=== PATIENT | female | born 1940 | race Caucasian/White ===

== ENCOUNTER 2018-10-07 09:51 | Emergency (ER) | payer OTHER ==
[~2018-10-07] VITALS: Ht 165.1 cm; Wt 120.0 kg
[2018-10-07 10:21] VITALS: BP 102/81
[2018-10-07] MEDS ORDERED: HYDR12.58 PO (12:29)
[2018-10-07] MEDS ORDERED: DIVA500T2 PO (12:29)
[2018-10-07] MEDS ORDERED: METO25TA91 PO (12:29)
[2018-10-07] MEDS ORDERED: LISI-167 PO (12:29)
[2018-10-07] MEDS ORDERED: NIFE10CA PO (12:29)
[2018-10-07] MEDS ORDERED: OMNICEF PO (12:29)
[2018-10-07] MEDS ORDERED: FURO40TA6 PO (12:29)
[2018-10-07] MEDS ORDERED: METF500T17 PO (12:29)
[2018-10-07] MEDS ORDERED: ASPI-496 PO (12:29)
[2018-10-07] MEDS ORDERED: LEVO137T3 PO (12:29)
[2018-10-07] MEDS ORDERED: ATOR-2 PO (12:29)
[2018-10-07 14:28] LABS: BASOPHILS % (AUTO) 1 % (0-1); EOSINOPHILS # (AUTO) 0.14 x10^3/uL (0-0.4); EOSINOPHILS % (AUTO) 2 % (1-7); LYMPHOCYTES # (AUTO) 1.36 x10^3/uL (1-3.4); LYMPHOCYTES % (AUTO) 16 % (22-44); MD NO; MEAN CORPUSCULAR HEMOGLOBIN 30.8 pg (27.0-34.8); MEAN CORPUSCULAR HGB CONC 33.4 g/dL (32.4-35.8); MEAN CORPUSCULAR VOLUME 92.1 fL (80-100); MEAN PLATELET VOLUME 9.8 fL (7.4-10.4); MONOCYTES # (AUTO) 0.57 x10^3/uL (0.2-0.8); MONOCYTES % (AUTO) 7 % (2-9); NEUTROPHILS # (AUTO) 6.15 x10^3/uL (1.8-6.8); NEUTROPHILS % (AUTO) 74 % (42-75); PLATELET COUNT 179 x10^3/uL (130-400); RED BLOOD COUNT 4.42 x10^6/uL (3.82-5.3)
[2018-10-07] MEDS ORDERED: CEFTRIAXONE PMX 1GM/50ML 50 ML IV SCH (14:30)
[2018-10-07] MEDS ORDERED: SODIUM CHLORIDE 0.9% 1,000ML IVBOLUS ONE (14:30)
[2018-10-07] MEDS ORDERED: LORazepam INTENSOL 2 MG/ML BC ONE (14:30)
[2018-10-07] MEDS ORDERED: ACETAMINOPHEN 325 MG TABLET PO PRN (14:30)
[2018-10-07] MEDS ORDERED: ONDANSETRON ODT 4 MG PO PRN (14:30)
[2018-10-07] MEDS ORDERED: LORazepam 2 MG/ML, 1ML IVPush ONE (14:30)
[2018-10-07 14:31] LABS: ANION GAP 7 mmol/L (5-15); CALCIUM 8.9 mg/dL (8.5-10.1); CHLORIDE 109 mmol/L (98-107); CREATININE 1.44 mg/dL (0.55-1.02)
[2018-10-07] MEDS ORDERED: NYSTATIN CRM 15GM TP SCH (21:00)
[2018-10-08 15:43] LABS: ANION GAP 9 mmol/L (5-15); CALCIUM 8.1 mg/dL (8.5-10.1); CHLORIDE 111 mmol/L (98-107); CREATININE 1.29 mg/dL (0.55-1.02)
== END 2018-10-07 15:56 ==
LOC: ED 11:35 → UNDOADMIN 12:38 → EDIP 12:38 → ED 15:56
DX: F23 Brief psychotic disorder (principal); N39.0 Urinary tract infection, site not specified; E03.9 Hypothyroidism, unspecified; E11.65 Type 2 diabetes mellitus with hyperglycemia; N17.9 Acute kidney failure, unspecified; I11.9 Hypertensive heart disease without heart failure; E78.5 Hyperlipidemia, unspecified
CPT/HCPCS: 36415; 80048; 82040; 85025; 99285

== ENCOUNTER 2018-10-07 15:22 | Inpatient (IN) | payer OTHER ==
[~2018-10-07] VITALS: Ht 172.7 cm; Wt 121.0 kg
[~2018-10-07 15:22] MED LIST: ASPI-496 PO; ATOR-2 PO; DIVA500T2 PO; FURO40TA6 PO; HYDROCHLOROTH12.5 MG PO; LEVO137T3 PO; LISI-167 PO; METF500T17 PO; METO25TA91 PO; NIFE10CA PO; OMNICEF PO
[2018-10-07] MEDS ORDERED: DOCUSATE 100 MG CAPSULE PO PRN (16:00)
[2018-10-07] MEDS ORDERED: BISACODYL 10 MG SUPP PR PRN (16:00)
[2018-10-07] MEDS ORDERED: POLYETHYLENE GLYCOL 17 GM PACKET PO PRN (16:00)
[2018-10-07] MEDS ORDERED: ACETAMINOPHEN 325 MG TABLET PO PRN (16:00)
[2018-10-07] MEDS ORDERED: CEFTRIAXONE PMX 1GM/50ML 50 ML IV SCH (16:30)
[2018-10-07 16:37] VITALS: BP 155/70
[2018-10-07] MEDS ORDERED: OLANZAPINE 10 MG INJ IM ONE ×2 (18:29→18:30)
[2018-10-07] MEDS ORDERED: NYSTATIN CRM 15GM TP SCH (21:00)
[2018-10-07] MEDS: ATORVASTATIN 40 MG TABLET PO SCH (21:00)
[2018-10-07] MEDS ORDERED: DIAZEPAM 5 MG/ML, 2ML IM ONE (21:00)
[2018-10-07] MEDS: metFORMIN 500 MG TABLET PO SCH (21:00)
[2018-10-07] MEDS: DIVALPROEX 500 MG TABLET.DR PO SCH (21:00)
[2018-10-08] MEDS: LEVOTHYROXINE 137 MCG TABLET PO SCH (09:00)
[2018-10-08] MEDS: METOPROLOL SUCCINATE 25 MG TAB.ER.24H PO SCH (09:00)
[2018-10-08] MEDS: DIVALPROEX 500 MG TABLET.DR PO SCH ×3 (09:00→21:47)
[2018-10-08] MEDS: HYDROCHLOROTHIAZIDE 12.5 MG CAPSULE PO SCH ×2 (09:00→10:06)
[2018-10-08] MEDS: SENNA/DOCUSATE TABLET PO SCH (09:00)
[2018-10-08] MEDS ORDERED: METOPROLOL SUCCINATE 50 MG TAB.ER.24H ONE (09:59)
[2018-10-08 10:03] VITALS: BP 155/70
[2018-10-08] MEDS: CEFTRIAXONE 1,000 MG IM SCH (10:05)
[2018-10-08] MEDS: ASPIRIN 81 MG TABLET EC PO SCH (10:06)
[2018-10-08] MEDS: metFORMIN 500 MG TABLET PO SCH ×2 (10:06→21:47)
[2018-10-08] MEDS: FUROSEMIDE 40 MG TABLET PO SCH (10:06)
[2018-10-08] MEDS: LISINOPRIL 20 MG TABLET PO SCH (10:06)
[2018-10-08 20:52] VITALS: BP 147/78
[2018-10-08] MEDS: ATORVASTATIN 40 MG TABLET PO SCH (21:47)
[2018-10-08] MEDS: RISPERIDONE 1 MG TABLET PO SCH (21:59)
[2018-10-09 07:15] VITALS: BP 155/67
[2018-10-09] MEDS: metFORMIN 500 MG TABLET PO SCH ×2 (09:23→21:00)
[2018-10-09] MEDS: RISPERIDONE 1 MG TABLET PO SCH ×2 (09:24→21:00)
[2018-10-09] MEDS: ASPIRIN 81 MG TABLET EC PO SCH (09:24)
[2018-10-09] MEDS: LEVOTHYROXINE 137 MCG TABLET PO SCH (09:25)
[2018-10-09] MEDS: METOPROLOL SUCCINATE 25 MG TAB.ER.24H PO SCH (09:25)
[2018-10-09] MEDS: SENNA/DOCUSATE TABLET PO SCH (09:33)
[2018-10-09] MEDS: CEFTRIAXONE 1,000 MG IM SCH (09:34)
[2018-10-09] MEDS: DIVALPROEX 500 MG TABLET.DR PO SCH ×2 (09:35→21:00)
[2018-10-09] MEDS: HYDROCHLOROTHIAZIDE 12.5 MG CAPSULE PO SCH (09:35)
[2018-10-09] MEDS: FUROSEMIDE 40 MG TABLET PO SCH (09:35)
[2018-10-09] MEDS: LISINOPRIL 20 MG TABLET PO SCH (09:36)
[2018-10-09 19:56] VITALS: BP 170/88
[2018-10-09] MEDS: ATORVASTATIN 40 MG TABLET PO SCH (21:00)
[2018-10-10] MEDS: LEVOTHYROXINE 137 MCG TABLET PO SCH (06:13)
[2018-10-10 07:53] VITALS: BP 195/109
[2018-10-10] MEDS: ASPIRIN 81 MG TABLET EC PO SCH (08:12)
[2018-10-10] MEDS: metFORMIN 500 MG TABLET PO SCH ×2 (08:12→21:15)
[2018-10-10] MEDS: DIVALPROEX 500 MG TABLET.DR PO SCH ×2 (08:12→21:15)
[2018-10-10] MEDS: FUROSEMIDE 40 MG TABLET PO SCH (08:13)
[2018-10-10] MEDS: SENNA/DOCUSATE TABLET PO SCH (08:13)
[2018-10-10] MEDS: HYDROCHLOROTHIAZIDE 12.5 MG CAPSULE PO SCH (08:13)
[2018-10-10] MEDS: METOPROLOL SUCCINATE 25 MG TAB.ER.24H PO SCH (08:14)
[2018-10-10] MEDS: LISINOPRIL 20 MG TABLET PO SCH (08:14)
[2018-10-10] MEDS: RISPERIDONE 1 MG TABLET PO SCH ×2 (08:14→21:15)
[2018-10-10] MEDS: niFEDipine ER 30 MG TABLET.ER PO SCH (08:15)
[2018-10-10 18:00] VITALS: BP 140/81
[2018-10-10 19:22] VITALS: BP 160/76
[2018-10-10] MEDS: ATORVASTATIN 40 MG TABLET PO SCH (21:15)
[2018-10-11] MEDS: LEVOTHYROXINE 137 MCG TABLET PO SCH (06:00)
[2018-10-11 07:32] VITALS: BP 176/84
[2018-10-11] MEDS: RISPERIDONE 1 MG TABLET PO SCH (08:28)
[2018-10-11] MEDS: DIVALPROEX 500 MG TABLET.DR PO SCH ×2 (08:28→20:21)
[2018-10-11] MEDS: METOPROLOL SUCCINATE 25 MG TAB.ER.24H PO SCH (08:28)
[2018-10-11] MEDS: ASPIRIN 81 MG TABLET EC PO SCH (08:28)
[2018-10-11] MEDS: SENNA/DOCUSATE TABLET PO SCH (08:28)
[2018-10-11] MEDS: FUROSEMIDE 40 MG TABLET PO SCH (08:28)
[2018-10-11] MEDS: niFEDipine ER 30 MG TABLET.ER PO SCH (08:28)
[2018-10-11] MEDS: metFORMIN 500 MG TABLET PO SCH ×2 (08:29→20:21)
[2018-10-11] MEDS: LISINOPRIL 20 MG TABLET PO SCH (08:29)
[2018-10-11] MEDS: HYDROCHLOROTHIAZIDE 12.5 MG CAPSULE PO SCH (08:29)
[2018-10-11 19:31] VITALS: BP 155/87
[2018-10-11] MEDS: ATORVASTATIN 40 MG TABLET PO SCH (20:21)
[2018-10-11] MEDS: RISPERIDONE 2 MG TABLET PO SCH (20:21)
[2018-10-12] MEDS: LEVOTHYROXINE 137 MCG TABLET PO SCH (05:55)
[2018-10-12 07:30] VITALS: BP 116/67
[2018-10-12] MEDS: niFEDipine ER 30 MG TABLET.ER PO SCH (09:45)
[2018-10-12] MEDS: DIVALPROEX 500 MG TABLET.DR PO SCH ×2 (09:45→20:57)
[2018-10-12] MEDS: SENNA/DOCUSATE TABLET PO SCH (09:45)
[2018-10-12] MEDS: metFORMIN 500 MG TABLET PO SCH ×2 (09:46→20:57)
[2018-10-12] MEDS: FUROSEMIDE 40 MG TABLET PO SCH (09:46)
[2018-10-12] MEDS: METOPROLOL SUCCINATE 25 MG TAB.ER.24H PO SCH (09:47)
[2018-10-12] MEDS: HYDROCHLOROTHIAZIDE 12.5 MG CAPSULE PO SCH (09:47)
[2018-10-12] MEDS: ASPIRIN 81 MG TABLET EC PO SCH (09:47)
[2018-10-12] MEDS: RISPERIDONE 2 MG TABLET PO SCH ×2 (09:48→20:57)
[2018-10-12] MEDS: LISINOPRIL 20 MG TABLET PO SCH (09:49)
[2018-10-12 19:25] VITALS: BP 114/73
[2018-10-12] MEDS: ATORVASTATIN 40 MG TABLET PO SCH (20:56)
[2018-10-13 07:10] VITALS: BP 169/81
[2018-10-13] MEDS: RISPERIDONE 2 MG TABLET PO SCH ×2 (08:09→20:04)
[2018-10-13] MEDS: DIVALPROEX 500 MG TABLET.DR PO SCH ×4 (08:09→20:08)
[2018-10-13] MEDS: FUROSEMIDE 40 MG TABLET PO SCH (08:09)
[2018-10-13] MEDS: niFEDipine ER 30 MG TABLET.ER PO SCH (08:09)
[2018-10-13] MEDS: LEVOTHYROXINE 137 MCG TABLET PO SCH (08:09)
[2018-10-13] MEDS: metFORMIN 500 MG TABLET PO SCH ×2 (08:09→20:03)
[2018-10-13] MEDS: HYDROCHLOROTHIAZIDE 12.5 MG CAPSULE PO SCH (08:09)
[2018-10-13] MEDS: ASPIRIN 81 MG TABLET EC PO SCH (08:10)
[2018-10-13] MEDS: LISINOPRIL 20 MG TABLET PO SCH (08:10)
[2018-10-13] MEDS: METOPROLOL SUCCINATE 25 MG TAB.ER.24H PO SCH (08:11)
[2018-10-13] MEDS: SENNA/DOCUSATE TABLET PO SCH (08:13)
[2018-10-13 19:11] VITALS: BP 131/84
[2018-10-13] MEDS: ATORVASTATIN 40 MG TABLET PO SCH (20:04)
[2018-10-14] MEDS: LEVOTHYROXINE 137 MCG TABLET PO SCH (06:14)
[2018-10-14 07:45] VITALS: BP 120/78
[2018-10-14] MEDS: niFEDipine ER 30 MG TABLET.ER PO SCH (09:04)
[2018-10-14] MEDS: ASPIRIN 81 MG TABLET EC PO SCH (09:04)
[2018-10-14] MEDS: SENNA/DOCUSATE TABLET PO SCH (09:04)
[2018-10-14] MEDS: metFORMIN 500 MG TABLET PO SCH ×2 (09:04→21:12)
[2018-10-14] MEDS: RISPERIDONE 2 MG TABLET PO SCH ×2 (09:05→21:12)
[2018-10-14] MEDS: METOPROLOL SUCCINATE 25 MG TAB.ER.24H PO SCH (09:05)
[2018-10-14] MEDS: LISINOPRIL 20 MG TABLET PO SCH (09:05)
[2018-10-14] MEDS: FUROSEMIDE 40 MG TABLET PO SCH (09:06)
[2018-10-14] MEDS: HYDROCHLOROTHIAZIDE 12.5 MG CAPSULE PO SCH (09:06)
[2018-10-14] MEDS: DIVALPROEX 500 MG TABLET.DR PO SCH (09:06)
[2018-10-14 19:50] VITALS: BP 109/63
[2018-10-14] MEDS: ATORVASTATIN 40 MG TABLET PO SCH (21:12)
[2018-10-15] MEDS: LEVOTHYROXINE 137 MCG TABLET PO SCH (05:46)
[2018-10-15 07:46] VITALS: BP 155/73
[2018-10-15] MEDS: HYDROCHLOROTHIAZIDE 12.5 MG CAPSULE PO SCH (08:39)
[2018-10-15] MEDS: SENNA/DOCUSATE TABLET PO SCH (08:39)
[2018-10-15] MEDS: METOPROLOL SUCCINATE 25 MG TAB.ER.24H PO SCH (08:39)
[2018-10-15] MEDS: ASPIRIN 81 MG TABLET EC PO SCH (08:39)
[2018-10-15] MEDS: niFEDipine ER 30 MG TABLET.ER PO SCH (08:39)
[2018-10-15] MEDS: LISINOPRIL 20 MG TABLET PO SCH (08:40)
[2018-10-15] MEDS: RISPERIDONE 2 MG TABLET PO SCH (08:40)
[2018-10-15] MEDS: metFORMIN 500 MG TABLET PO SCH (08:40)
[2018-10-15] MEDS: FUROSEMIDE 40 MG TABLET PO SCH (08:40)
== END 2018-10-15 10:45 | disposition home or self-care (01) | DRG 885 ==
LOC: 3E 16:03
PROVIDERS: ADMIT Counselor Mental Health; ATTEND Counselor Mental Health
DX: F31.2 Bipolar disorder, current episode manic severe with psychotic features (principal); F23 Brief psychotic disorder; N39.0 Urinary tract infection, site not specified; N17.9 Acute kidney failure, unspecified; E44.0 Moderate protein-calorie malnutrition; Z68.41 Body mass index [BMI] 40.0-44.9, adult; I11.9 Hypertensive heart disease without heart failure; E11.65 Type 2 diabetes mellitus with hyperglycemia; E03.9 Hypothyroidism, unspecified; E78.5 Hyperlipidemia, unspecified; K59.00 Constipation, unspecified; Z79.899 Other long term (current) drug therapy; Z79.84 Long term (current) use of oral hypoglycemic drugs; Z79.82 Long term (current) use of aspirin; E66.9 Obesity, unspecified; Z60.2 Problems related to living alone
CPT/HCPCS: J0696